=== PATIENT | female | born 1980 | race Native Hawaiian/Other Pacific Islander ===

== ENCOUNTER 2019-04-08 13:01 | Outpatient (CLI) | payer OTHER | END 2019-04-08 13:04 | disposition short-term general hospital (02) | LOC: AMB 13:01 | DX: R40.4 Transient alteration of awareness (principal); F19.10 Other psychoactive substance abuse, uncomplicated | CPT/HCPCS: A0425; A0427 ==

== ENCOUNTER 2019-04-08 13:06 | Observation (INO) | payer OTHER ==
[~2019-04-08] VITALS: Ht 157.5 cm; Wt 65.6 kg
[2019-04-08] VITALS (13 sets, daily range): BP systolic 120–174; BP diastolic 70–106; TEMP 98.1–98.5; Ht 157.5 cm; Wt 65.6 kg
[2019-04-08 13:48] LABS: PLATELET COUNT 296 K/uL (152-353)
[2019-04-08 18:27] LABS: PARTIAL THROMBOPLASTIN TIME 24.3 SECONDS (24.5-33.6)
[2019-04-09] VITALS (11 sets, daily range): BP systolic 100–126; BP diastolic 48–74; TEMP 98.5–9801
[2019-04-09 05:28] LABS: PLATELET COUNT 260 K/uL (152-353)
[2019-04-09 05:36] LABS: POTASSIUM 3.7 mmol/L (3.6-5.2)
== END 2019-04-09 13:25 | disposition short-term general hospital (02) ==
LOC: ED 13:06 → MED/SURG 16:45 → PCU 17:42
PROVIDERS: Family Medicine; ADMIT Family Medicine
DX: J96.00 Acute respiratory failure, unspecified whether with hypoxia or hypercapnia (principal); F19.10 Other psychoactive substance abuse, uncomplicated; I10 Essential (primary) hypertension; E87.6 Hypokalemia; N39.0 Urinary tract infection, site not specified; R94.31 Abnormal electrocardiogram [ECG] [EKG]
CPT/HCPCS: 36415; 80053; 80307; 80320; 80329; 81000; 81025; 83735; 84484; 85027; 85610; 85730; 87077; 87086; 87088; 87186; 93005; 99220; 99284; G0378